=== PATIENT | male | born 1995 | race Caucasian/White ===

== ENCOUNTER 2020-09-19 13:22 | Emergency (ER) | payer SELFPAY ==
--- NOTE | 2020-09-19 13:26 | ERPHSYRPT ---
- History of Present Illness Time Seen by Provider: 09/19/20 13:30 Source: patient Physician History: Patient is a 25-year-old male presents to our emergency department for evaluation of a needlestick. Patient was in the operating room assisting a surgeon performed a procedure when he poked himself with a needle. It was not hollow bore. It was a needle attached to a suture. Patient is a medical student. Patient up-to-date with all vaccinations. Injury occurred just prior to arrival. No other injuries reported. Patient was able to express blood from the wound site. Immediately thereafter patient irrigated wound copiously. Patient is in our ED to complete the needlestick protocols. Patient voices no other complaints concerns at this time. Timing/Duration: today Severity: mild Modifying Factors: Improves With: nothing Associated Symptoms: denies symptoms Allergies/Adverse Reactions: No Known Drug Allergies Allergy (Unverified 09/19/20 13:28) Home Medications: Itraconazole 100 mg PO BID 09/19/20 [History] - Review of Systems Constitutional: No Symptoms, No Fever, No Chills Eyes: No Symptoms Ears, Nose, & Throat: No Symptoms Respiratory: No Symptoms, No Cough, No Dyspnea Cardiac: No Symptoms, No Chest Pain, No Edema, No Syncope Abdominal/Gastrointestinal: No Symptoms, No Abdominal Pain, No Nausea, No Vomiting, No Diarrhea Genitourinary Symptoms: No Symptoms, No Dysuria Musculoskeletal: No Symptoms, No Back Pain, No Neck Pain Skin: No Symptoms, No Rash Neurological: No Symptoms, No Dizziness, No Focal Weakness, No Sensory Changes Psychological: No Symptoms Endocrine: No Symptoms Hematologic/Lymphatic: No Symptoms Immunological/Allergic: No Symptoms All Other Systems: Reviewed and Negative - Nursing Vital Signs Nursing Vital Signs: Initial Vital Signs Temperature 98.7 F 09/19/20 13:23 Pulse Rate 60 09/19/20 13:23 Respiratory Rate 18 09/19/20 13:23 Blood Pressure 123/69 09/19/20 13:23 O2 Sat by Pulse Oximetry 99 09/19/20 13:23 Pain Scale Pain Intensity 0 - Physical Exam General Appearance: no apparent distress, alert Eye Exam: PERRL/EOMI, eyes nml inspection Ears, Nose, Throat Exam: normal ENT inspection, TMs normal, pharynx normal, moist mucous membranes Neck Exam: normal inspection, non-tender, supple, full range of motion Respiratory Exam: normal breath sounds, lungs clear, No respiratory distress Cardiovascular Exam: regular rate/rhythm, normal heart sounds, normal peripheral pulses Gastrointestinal/Abdomen Exam: soft, normal bowel sounds, No tenderness, No mass Back Exam: normal inspection, normal range of motion, No CVA tenderness, No vertebral tenderness Extremity Exam: normal inspection, normal range of motion, pelvis stable, other (Small puncture wound at the medial aspect of the left index finger at the level of the PIP joint.) Neurologic Exam: alert, oriented x 3, cooperative, normal mood/affect, nml cerebellar function, nml station & gait, sensation nml, No motor deficits Skin Exam: normal color, warm, dry, No rash Lymphatic Exam: No adenopathy SpO2 Interpretation: normal SpO2: 99 O2 Delivery: Room Air - Course Nursing assessment & vital signs reviewed: Yes - Progress Progress: improved Progress Note: 09/19/20 13:33 Patient reassessed. He is well. No indication for further treatment or imaging studies. We will complete the needlestick protocol. Patient to follow-up as discussed. Counseled pt/family regarding: diagnosis, need for follow-up - Departure Departure Disposition: Home Clinical Impression: Needle stick injury of finger Condition: Stable Critical Care Time: No
[2020-09-19 13:28] VITALS: O2SAT 99
[2020-09-19 14:08] LABS: Absolute Neutrophil Ct (ANC) 3.29 (1.4-6.9); BASOPHIL % 0.2 % (0.0-0.4); Basophil (Absolute #) 0.01 (0-0.4); Eosinophil (Absolute #) 0.05 (0-0.5); Hematocrit 47.2 % (42-50); Hemoglobin 15.7 gm/dl (12.5-18.0); Lymphocyte (Absolute #) 1.19 (1.0-4.6); Lymphocytes % 24.4 % (24.0-44.0); Mean Cell Volume 89.6 fl (78-100); Mean Corpuscular Hemoglobin 29.8 pg (26-32); Mean Corpuscular Hgb Concent. 33.3 g/dl (32-36); Mean Platelet Volume 10.8 fl (7.5-11.0); Monocyte (Absolute #) 0.33 (0.0-1.3); Monocytes % 6.8 % (0.0-12.0); Neutrophil % 67.6 % (36.0-66.0); Platelet Count 264 K/mm3 (150-450); Red Blood Count 5.27 M/mm3 (4.1-5.6); Red Cell Distribution Width 12.8 % (11.5-14.0); White Blood Count 4.9 K/mm3 (4.0-10.5)
[2020-09-19 15:07] VITALS: BP 123/79; PULSE 72
== END 2020-09-19 15:07 | disposition home or self-care (01) ==
LOC: ED 13:22
DX: S61.231A Puncture wound without foreign body of left index finger without damage to nail, initial encounter (principal); W46.1XXA Contact with contaminated hypodermic needle, initial encounter; Y93.F9 Activity, other caregiving; Y92.238 Other place in hospital as the place of occurrence of the external cause; Y99.8 Other external cause status
CPT/HCPCS: 36415; 85025; 86317; 86701; 86702; 86803; 87340; 87389; 87535; 99283